=== PATIENT | male | born 2000 | race American Indian/Alaskan Native ===

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

== ENCOUNTER 2019-10-26 12:07 | Emergency (ER) | payer SELFPAY ==
--- NOTE | 2019-10-26 13:03 | XRay Report ---
RIGHT SHOULDER 2 VIEW(S) INDICATION / CLINICAL INFORMATION: PAIN AND DECREASED ROM COMPARISON: None available. FINDINGS: There is inferior dislocation of the right glenohumeral joint. No obvious fracture is seen at this ti me. Bone mineralization is normal. The visualized right lung is clear. IMPRESSION: Inferior dislocation of the right glenohumeral joint. Statistically, this represents an anterior-infe rior dislocation. Signer Name: Vijay Hay MD Signed: 10/26/2019 12:59 PM Workstation Name: [id number]
[2019-10-26] MEDS ORDERED: MIDAZOLAM 5 MG/5 ML INJ MDV IV ONE (13:06)
[2019-10-26] MEDS ORDERED: fentaNYL 100 MCG/2 ML INJ IV ONE (13:06)
[2019-10-26] MEDS ORDERED: SODIUM CHLORIDE 0.9% 1000 ML 1,000 ML IV ONE (13:06)
[2019-10-26] MEDS ORDERED: ONDANSETRON 4 MG/2 ML INJ IV ONE (13:06)
--- NOTE | 2019-10-26 13:24 | Emergency Department Report ---
ED Upper Extremity Inj HPI - General Chief Complaint: Extremity Injury, Upper Stated Complaint: DISLOCATED SHOULDER Time Seen by Provider: 10/26/19 13:06 Source: patient Mode of arrival: Wheelchair Limitations: No Limitations - History of Present Illness Initial Comments: Patient is 19 years old male with history of recurrent shoulder dislocation. Patient stated that he was playing basketball when this happened. Patient denied any other injuries. Last dislocation was in August. Patient stated that he had surgery 2 years ago but he did not do her rehab and that is why have the recurrence. MD Complaint: Injury to:: right, shoulder -: Sudden, This morning Other Extremity Injury: Shoulder: Right Other Injuries: none Handedness: right Place: outdoors Improves With: immobilization Associated Symptoms: denies other symptoms - Related Data Previous Rx's Medication Instructions Recorded Last Taken Type Ibuprofen [Motrin 600 MG tab] 600 mg PO Q8H PRN #30 tablet 10/20/16 Unknown Rx traMADoL [Ultram] 50 mg PO Q6HR PRN #14 tablet 10/22/16 Unknown Rx Naproxen [Naprosyn] 500 mg PO BID #14 tablet 10/26/19 Unknown Rx Allergies Allergy/AdvReac Type Severity Reaction Status Date / Time No Known Allergies Allergy Verified 10/20/16 10:00 ED Review of Systems ROS: Stated complaint: DISLOCATED SHOULDER Other details as noted in HPI Comment: All other systems reviewed and negative Constitutional: denies: chills, fever Cardiovascular: denies: chest pain Gastrointestinal: denies: abdominal pain, nausea, vomiting Musculoskeletal: denies: back pain Neurological: denies: headache, weakness, numbness, paresthesias, confusion ED Past Medical Hx - Past Medical History Previous Medical History?: No Additional medical history: Shoulder dislocation x 8 - Social History Smoking Status: Never Smoker Substance Use Type: None - Medications Home Medications: Home Medications Medication Instructions Recorded Confirmed Last Taken Type Ibuprofen [Motrin 600 MG tab] 600 mg PO Q8H PRN #30 tablet 10/20/16 Unknown Rx traMADoL [Ultram] 50 mg PO Q6HR PRN #14 tablet 10/22/16 Unknown Rx Naproxen [Naprosyn] 500 mg PO BID #14 tablet 10/26/19 Unknown Rx ED Physical Exam - General Limitations: No Limitations General appearance: alert, in no apparent distress - Head Head exam: Present: atraumatic, normocephalic, normal inspection - Eye Eye exam: Present: normal appearance - ENT ENT exam: Present: normal exam, normal orophraynx, mucous membranes moist - Neck Neck exam: Present: normal inspection, full ROM. Absent: tenderness, meningismus, lymphadenopathy, thyromegaly - Respiratory Respiratory exam: Present: normal lung sounds bilaterally - Cardiovascular Cardiovascular Exam: Present: regular rate, normal rhythm, normal heart sounds - GI/Abdominal GI/Abdominal exam: Present: soft, normal bowel sounds. Absent: distended, tenderness, guarding, rebound, rigid, organomegaly, mass, bruit, pulsatile mass, hernia - Extremities Exam Extremities exam: Absent: pedal edema, joint swelling, calf tenderness - Expanded Upper Extremity Exam Right Shoulder Exam: Present: tenderness, swelling, deformity, dislocation Upper Arm exam: Present: normal inspection, full ROM Elbow exam: Present: normal inspection, full ROM Forearm Wrist exam: Present: normal inspection, full ROM Hand Wrist exam: Present: normal inspection, full ROM Neuro motor exam: Present: wrist extension intact, thumb opposition intact, thumb IP flexion intact, thumb adduction intact, fingers 2-5 abduction intact Neurosensory exam: Present: 2-point discrimination, radial nerve intact, ulnar nerve intact, median nerve intact Vascular: Present: normal capillary refill - Back Exam Back exam: Present: normal inspection, full ROM. Absent: CVA tenderness (R), CVA tenderness (L) - Neurological Exam Neurological exam: Present: alert, oriented X3, CN II-XII intact, normal gait, reflexes normal - Psychiatric Psychiatric exam: Present: normal mood - Skin Skin exam: Present: warm, intact, normal color ED Course Vital Signs 10/26/19 10/26/19 10/26/19 12:15 13:08 13:10 Temperature 97.8 F Pulse Rate 90 Pulse Rate [ Intra-Procedure ] Pulse Rate [ Post-Procedure] Pulse Rate [Pre 61 -Procedure] Respiratory 18 Rate Respiratory Rate [Intra- Procedure] Respiratory Rate [Post- Procedure] Respiratory 16 Rate [Pre- Procedure] Blood Pressure 112/63 Blood Pressure [Intra- Procedure] Blood Pressure 100/54 [Pre-Procedure] O2 Sat by Pulse 96 99 Oximetry O2 Sat by Pulse Oximetry [ Intra-Procedure ] O2 Sat by Pulse Oximetry [Post -Procedure] O2 Sat by Pulse 100 Oximetry [Pre- Procedure] 09/08/0810/26/19 10/26/19 13:11 13:15 13:21 Temperature Pulse Rate Pulse Rate [ 62 Intra-Procedure ] Pulse Rate [ Post-Procedure] Pulse Rate [Pre -Procedure] Respiratory Rate Respiratory 20 Rate [Intra- Procedure] Respiratory Rate [Post- Procedure] Respiratory Rate [Pre- Procedure] Blood Pressure Blood Pressure 95/56 [Intra- Procedure] Blood Pressure [Pre-Procedure] O2 Sat by Pulse 98 98 98 Oximetry O2 Sat by Pulse 100 Oximetry [ Intra-Procedure ] O2 Sat by Pulse Oximetry [Post -Procedure] O2 Sat by Pulse Oximetry [Pre- Procedure] 10/26/19 10/26/19 10/26/19 13:25 13:30 13:35 Temperature Pulse Rate Pulse Rate [ Intra-Procedure ] Pulse Rate [ Post-Procedure] Pulse Rate [Pre -Procedure] Respiratory Rate Respiratory Rate [Intra- Procedure] Respiratory Rate [Post- Procedure] Respiratory Rate [Pre- Procedure] Blood Pressure 102/62 102/62 Blood Pressure [Intra- Procedure] Blood Pressure [Pre-Procedure] O2 Sat by Pulse 99 98 99 Oximetry O2 Sat by Pulse Oximetry [ Intra-Procedure ] O2 Sat by Pulse Oximetry [Post -Procedure] O2 Sat by Pulse Oximetry [Pre- Procedure] 10/26/19 10/26/19 10/26/19 13:40 13:45 13:50 Temperature Pulse Rate Pulse Rate [ Intra-Procedure ] Pulse Rate [ Post-Procedure] Pulse Rate [Pre -Procedure] Respiratory Rate Respiratory Rate [Intra- Procedure] Respiratory Rate [Post- Procedure] Respiratory Rate [Pre- Procedure] Blood Pressure 96/52 95/56 101/65 Blood Pressure [Intra- Procedure] Blood Pressure [Pre-Procedure] O2 Sat by Pulse 95 96 94 Oximetry O2 Sat by Pulse Oximetry [ Intra-Procedure ] O2 Sat by Pulse Oximetry [Post -Procedure] O2 Sat by Pulse Oximetry [Pre- Procedure] 10/26/19 10/26/19 10/26/19 13:55 14:00 14:01 Temperature Pulse Rate Pulse Rate [ Intra-Procedure ] Pulse Rate [ 65 Post-Procedure] Pulse Rate [Pre -Procedure] Respiratory Rate Respiratory Rate [Intra- Procedure] Respiratory 9 L Rate [Post- Procedure] Respiratory Rate [Pre- Procedure] Blood Pressure 104/69 104/69 Blood Pressure [Intra- Procedure] Blood Pressure [Pre-Procedure] O2 Sat by Pulse 98 100 Oximetry O2 Sat by Pulse Oximetry [ Intra-Procedure ] O2 Sat by Pulse 96 Oximetry [Post -Procedure] O2 Sat by Pulse Oximetry [Pre- Procedure] 10/26/19 10/26/19 10/26/19 14:05 14:06 14:10 Temperature Pulse Rate Pulse Rate [ Intra-Procedure ] Pulse Rate [ Post-Procedure] Pulse Rate [Pre -Procedure] Respiratory 18 Rate Respiratory Rate [Intra- Procedure] Respiratory Rate [Post- Procedure] Respiratory Rate [Pre- Procedure] Blood Pressure 109/58 109/71 Blood Pressure [Intra- Procedure] Blood Pressure [Pre-Procedure] O2 Sat by Pulse 100 100 100 Oximetry O2 Sat by Pulse Oximetry [ Intra-Procedure ] O2 Sat by Pulse Oximetry [Post -Procedure] O2 Sat by Pulse Oximetry [Pre- Procedure] 10/26/19 10/26/19 10/26/19 14:15 14:20 14:25 Temperature Pulse Rate Pulse Rate [ Intra-Procedure ] Pulse Rate [ Post-Procedure] Pulse Rate [Pre -Procedure] Respiratory Rate Respiratory Rate [Intra- Procedure] Respiratory Rate [Post- Procedure] Respiratory Rate [Pre- Procedure] Blood Pressure 102/66 102/65 106/65 Blood Pressure [Intra- Procedure] Blood Pressure [Pre-Procedure] O2 Sat by Pulse 100 99 99 Oximetry O2 Sat by Pulse Oximetry [ Intra-Procedure ] O2 Sat by Pulse Oximetry [Post -Procedure] O2 Sat by Pulse Oximetry [Pre- Procedure] 10/26/19 14:30 Temperature Pulse Rate Pulse Rate [ Intra-Procedure ] Pulse Rate [ Post-Procedure] Pulse Rate [Pre -Procedure] Respiratory Rate Respiratory Rate [Intra- Procedure] Respiratory Rate [Post- Procedure] Respiratory Rate [Pre- Procedure] Blood Pressure 107/64 Blood Pressure [Intra- Procedure] Blood Pressure [Pre-Procedure] O2 Sat by Pulse 98 Oximetry O2 Sat by Pulse Oximetry [ Intra-Procedure ] O2 Sat by Pulse Oximetry [Post -Procedure] O2 Sat by Pulse Oximetry [Pre- Procedure] - Reevaluation(s) Reevaluation #1: 10/26/19 15:19 Patient is now alert, work and oriented x3. Patient stated that he is feeling much better. Patient is medically stable for discharge. - Moderate Sedation Indications: fracture/dislocation redu ASA Class: II Mallampati Airway Score: 2 Preparation: accounts collector applied, pulse oximeter, capnometry used, supplemental O2 applied, reversal agents at bedside, suction/airway equipment at bedside Fentanyl: IV Midazolam: IV Complications: none Patient Tolerated Procedure: well, no complications - Orthopedic Joint Reduction Joint #1 Consent Obtained: written consent Time Out Performed: Yes Side: right Joint Reduction Location: shoulder Analgesia: moderate sedation Shoulder Technique Used (if applicable): traction/counter-traction Post-Reduction Neuro Exam: intact Post-Reduction Vascular Exam: intact Post Reduction X-Ray Obtained: Yes Post Reduction X-Ray Results: reduced Splint Applied: Yes Patient Tolerated Procedure: well, no complications ED Medical Decision Making - Radiology Data Radiology results: report reviewed - Medical Decision Making Patient is 19 years old male with history of recurrent shoulder dislocation. Patient stated that he was playing basketball when this happened. Patient denied any other injuries. Last dislocation was in August. Patient stated that he had surgery 2 years ago but he did not do her rehab and that is why have the recurrence. X-ray showed anterior shoulder dislocation. Using a conscious sedation and using a traction and countertraction technique, right shoulder easily reduced. Right arm sling applied. No complication. Critical care attestation.: If time is entered above; I have spent that time in minutes in the direct care of this critically ill patient, excluding procedure time. ED Disposition Clinical Impression: Dislocation of right shoulder joint Disposition: DC-01 TO HOME OR SELFCARE Is pt being admited?: No Condition: Stable Instructions: Shoulder Dislocation (ED), Moderate Sedation (ED) Prescriptions: Naproxen [Naprosyn] 500 mg PO BID #14 tablet Referrals: ADDI ROMAN MD [Staff Physician] - 3-5 Days
[2019-10-26] MEDS ORDERED: KETOROLAC 30 MG/1 ML INJ IV ONE (14:12)
--- NOTE | 2019-10-26 14:50 | XRay Report ---
RIGHT SHOULDER 1 VIEW(S) 1:19 PM INDICATION / CLINICAL INFORMATION: Post reduction COMPARISON: 12:46 PM FINDINGS: BONES / JOINT(S): Interval external reduction of previously noted anterior shoulder dislocation. Smal l, curvilinear fracture fragment adjacent to the posterior lateral humeral head. SOFT TISSUES: Mild soft tissue swelling around the right shoulder. ADDITIONAL FINDINGS: None. Signer Name: Suhail Pandey MD Signed: 10/26/2019 2:46 PM Workstation Name: [id number]
[2019-10-26 16:45] VITALS: BP 98/55
== END 2019-10-26 16:20 | disposition home or self-care (01) ==
LOC: ED 12:07
DX: S43.084A Other dislocation of right shoulder joint, initial encounter (principal); Z79.899 Other long term (current) drug therapy; X58.XXXA Exposure to other specified factors, initial encounter; Y93.89 Activity, other specified; Y92.89 Other specified places as the place of occurrence of the external cause; Y99.8 Other external cause status
CPT/HCPCS: 23650; 73020; 73030; 96361; 96374; 96375; 99283; J1885; J2250; J2405; J3010; J7030

== ENCOUNTER 2021-09-15 15:15 | Emergency (ER) | payer SELFPAY ==
[2021-09-15] MEDS ORDERED: MORPHINE 4 MG/1 ML INJ IM ONE (15:24)
--- NOTE | 2021-09-15 15:31 | Event Note ---
ED Screening Note ED Screening Note: 21-year-old male history of shoulder dislocations presents to the emergency department with right shoulder dislocation while playing basketball prior to arrival. Obvious dislocation of his right shoulder, otherwise neurovascularly intact with stable vital signs. 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 In the setting of a significantly high volume and record number of patients presenting to the emergency department and the fact that we have a limited space to see patients we have implemented the provider in triage protocol this allows an expedited initial exam of patients that might otherwise have left without being seen or who would wait longer than usual to be seen by provider. I interviewed the patient and performed a limited physical exam. This patient is a pulled from the waiting room to triage room for an initial assessment of adrenal studies and then returned to the waiting room pending results of the studies. The ultimate final evaluation and disposition may be performed by another provider depending on room and provider availability.
[2021-09-15] MEDS ORDERED: LIDOCAINE (1%) 10 MG/1 ML VIAL 20 ML MDV INFILTRATI ONE (16:11)
[2021-09-15] MEDS ORDERED: BUPIVACAINE/PF (0.5%) 5 MG/1 ML 10 ML VIAL INFILTRATI ONE (16:12)
[2021-09-15] MEDS ORDERED: diazePAM 10 MG/2 ML SYRINGE IV ONE (16:13)
[2021-09-15] MEDS ORDERED: MORPHINE 4 MG/1 ML INJ IV ONE (16:13)
--- NOTE | 2021-09-15 16:21 | XRay Report ---
SHOULDER 3 VIEW(S) INDICATION / CLINICAL INFORMATION: Pain and trauma. COMPARISON: 10/25/2010 right shoulder FINDINGS: BONES / JOINT(S): Right glenohumeral anterior inferior dislocation, which is recurrent status post re duction on 10/26/2019. No significant arthritis. No acute fracture. Normal alignment of the AC joint. SOFT TISSUES: No significant abnormality. ADDITIONAL FINDINGS: None. IMPRESSION: 1. Anterior-inferior dislocation of the right glenohumeral joint without definite associated acute fr acture. Signer Name: Rafa Connors MD Signed: 09/15/2021 4:16 PM Workstation Name: [id number]
[2021-09-15] MEDS ORDERED: propofoL 200 MG/20 ML VIAL IV ONE (17:13)
[2021-09-15] MEDS ORDERED: SODIUM CHLORIDE 0.9% 1000 ML 1,000 ML ONE (18:09)
--- NOTE | 2021-09-15 18:24 | Emergency Department Report ---
ED General Adult HPI - General Chief complaint: Extremity Injury, Upper Stated complaint: DISLOCATED SHOULDER Time Seen by Provider: 09/15/21 16:10 Source: patient Mode of arrival: Ambulatory Limitations: No Limitations - History of Present Illness Initial comments: The patient presents to the emergency department chief complaint of right shoulder dislocation while playing basketball. Patient states that he has had over 10 shoulder dislocations over the last 4 years. States that he had corrective surgery in 2017 or 2018 but did not get a chance to do physical therapy. -: Sudden Location: upper extremity Radiation: non-radiation Severity scale (0 -10): 10 Quality: sharp, constant Consistency: constant Improves with: rest Worsens with: movement Associated Symptoms: denies other symptoms Treatments Prior to Arrival: none - Related Data Previous Rx's Medication Instructions Recorded Last Taken Type Ibuprofen [Motrin 600 MG tab] 600 mg PO Q8H PRN #30 tablet 10/20/16 Unknown Rx traMADoL [Ultram] 50 mg PO Q6HR PRN #14 tablet 10/22/16 Unknown Rx Naproxen [Naprosyn] 500 mg PO BID #14 tablet 10/26/19 Unknown Rx Ibuprofen [Motrin] 800 mg PO Q8HR PRN #30 tablet 09/15/21 Unknown Rx Allergies Allergy/AdvReac Type Severity Reaction Status Date / Time No Known Allergies Allergy Verified 10/20/16 10:00 ED Review of Systems ROS: Stated complaint: DISLOCATED SHOULDER Other details as noted in HPI Comment: All other systems reviewed and negative Constitutional: denies: chills, fever Eyes: denies: eye pain, eye discharge, vision change ENT: denies: ear pain, throat pain Respiratory: denies: cough, shortness of breath, wheezing Cardiovascular: denies: chest pain, palpitations Endocrine: no symptoms reported Gastrointestinal: denies: abdominal pain, nausea, diarrhea Genitourinary: denies: urgency, dysuria Musculoskeletal: other (right shoulder pain). denies: back pain, joint swelling, arthralgia Skin: denies: rash, lesions Neurological: denies: headache, weakness, paresthesias Psychiatric: denies: anxiety, depression Hematological/Lymphatic: denies: easy bleeding, easy bruising ED Past Medical Hx - Past Medical History Previous Medical History?: Yes Additional medical history: Shoulder dislocation x 8 - Surgical History Past Surgical History?: No - Social History Smoking Status: Never Smoker - Medications Home Medications: Home Medications Medication Instructions Recorded Confirmed Last Taken Type Ibuprofen [Motrin 600 MG tab] 600 mg PO Q8H PRN #30 tablet 10/20/16 Unknown Rx traMADoL [Ultram] 50 mg PO Q6HR PRN #14 tablet 10/22/16 Unknown Rx Naproxen [Naprosyn] 500 mg PO BID #14 tablet 10/26/19 Unknown Rx Ibuprofen [Motrin] 800 mg PO Q8HR PRN #30 tablet 09/15/21 Unknown Rx ED Physical Exam - General Limitations: No Limitations General appearance: alert, in no apparent distress - Head Head exam: Present: atraumatic, normocephalic - Eye Eye exam: Present: normal appearance, PERRL, EOMI - ENT ENT exam: Present: mucous membranes moist - Neck Neck exam: Present: normal inspection - Respiratory Respiratory exam: Present: normal lung sounds bilaterally. Absent: respiratory distress - Cardiovascular Cardiovascular Exam: Present: regular rate, normal rhythm. Absent: systolic murmur, diastolic murmur, rubs, gallop - GI/Abdominal GI/Abdominal exam: Present: soft, normal bowel sounds. Absent: distended, tenderness - Rectal Rectal exam: Present: deferred - Extremities Exam Extremities exam: Present: other (Right shoulder with obvious anterior dislocation on exam sensation intact) - Back Exam Back exam: Present: normal inspection - Neurological Exam Neurological exam: Present: alert, oriented X3, CN II-XII intact. Absent: motor sensory deficit - Psychiatric Psychiatric exam: Present: normal affect, normal mood - Skin Skin exam: Present: warm, dry, intact, normal color. Absent: rash ED Course Vital Signs 09/15/21 09/15/21 09/15/21 15:31 16:03 17:58 Temperature 98.7 F 98.3 F Pulse Rate 94 H 68 62 Respiratory 18 13 17 Rate Blood Pressure 93/59 Blood Pressure 108/67 99/56 [Left] O2 Sat by Pulse 96 100 99 Oximetry 09/15/21 09/15/21 18:25 19:18 Temperature Pulse Rate 63 Respiratory 18 Rate Blood Pressure Blood Pressure 99/56 [Left] O2 Sat by Pulse 100 99 Oximetry - Joint Aspiration/Injection Consent Obtained: written consent Time Out Performed: Yes Indications: injection of medication Side of Body: right Joint Aspirated: shoulder Ultrasound Guidance: No Skin Prep: Povidone-Iodine1% Local Anesthesia Used: Bupivicaine 0.5% Amount of Anesthesia Used (mls): 10 Needle Size Used: 22G Syringe Size Used: 10cc Patient Tolerated Procedure: well Complications: none Additional Comments: Shoulder injection was done for pain control - Orthopedic Joint Reduction Joint #1 Consent Obtained: written consent Time Out Performed: Yes Side: right Joint Reduction Location: shoulder Analgesia: moderate sedation Local Anesthetic Used: Lidocaine 1%, Bupivicaine 0.5% Amount of Anesthetic Used (mls): 10 Shoulder Technique Used (if applicable): traction/counter-traction Technique Used: traction/counter-traction Post-Reduction Neuro Exam: intact Post-Reduction Vascular Exam: intact Post Reduction X-Ray Obtained: Yes Post Reduction X-Ray Results: reduced Splint Applied: Yes Patient Tolerated Procedure: well ED Medical Decision Making - Radiology Data Radiology results: report reviewed Critical care attestation.: If time is entered above; I have spent that time in minutes in the direct care of this critically ill patient, excluding procedure time. ED Disposition Clinical Impression: Anterior dislocation of right shoulder Disposition: 01 HOME / SELF CARE / HOMELESS Is pt being admited?: No Does the pt Need Aspirin: No Condition: Stable Instructions: Shoulder Dislocation Additional Instructions: Return if worse Referrals: ALINE RADFORD MD [Primary Care Provider] - 3-5 Days ADDI ROMAN MD [Staff Physician] - 3-5 Days Time of Disposition: 19:31
--- NOTE | 2021-09-15 19:00 | XRay Report ---
RIGHT SHOULDER ONE VIEW INDICATION / CLINICAL INFORMATION: post reduction. COMPARISON: 10/26/2019, 09/15/2021. FINDINGS: BONES / JOINT(S): Satisfactory reduction at the glenohumeral joint. No bony injury identified. Mild c ystic change at the glenoid remains. SOFT TISSUES: No significant abnormality. ADDITIONAL FINDINGS: None. Signer Name: Pierre Smallwood MD Signed: 09/15/2021 6:56 PM Workstation Name: [id number]
[2021-09-15 20:01] VITALS: BP 106/66
== END 2021-09-15 19:56 | disposition home or self-care (01) ==
LOC: ED 15:15
DX: S43.004A Unspecified dislocation of right shoulder joint, initial encounter (principal); X58.XXXA Exposure to other specified factors, initial encounter; Y93.29 Activity, other involving ice and snow; Y92.89 Other specified places as the place of occurrence of the external cause; Y99.8 Other external cause status
CPT/HCPCS: 20610; 23650; 73020; 73030; 96372; 96374; 96375; 99283; J2270; J2704; J3360; J3490; J7030